=== PATIENT | male | born 2005 | race Caucasian/White ===

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

== ENCOUNTER 2024-03-12 17:12 | Observation (INO) ==
[2024-03-12 20:55] LABS: ABS Eosinophils 0.1 10^3/uL (0.0-0.5); ABS Lymphocytes 2.3 10^3/uL (1.0-4.8); ABS Monocytes 0.7 10^3/uL (0.0-1.1); ABS Neutrophils 13.5 10^3/uL (1.5-7.6); ABS Nucleated RBC 0.01 10^3/ul; Eosinophil % 0.4 %; Hematocrit 43.9 % (38-53); Hemoglobin 15.3 g/dL (13.2-16.3); Mean Corpuscular Hemoglobin 29.1 pg (27-33); Mean Corpuscular Hgb Conc 34.9 g/dL (31-36); Mean Corpuscular Volume 83.4 fL (80-97); Mean Platelet Volume 7.9 fL (7.5-11.2); Platelet Count 370 10^3/uL (150-450); Red Blood Count 5.26 10^6/uL (4.06-5.63); Red Cell Distribution Width 12.8 % (12-17); White Blood Count 16.6 10^3/uL (3.6-10.2)
[2024-03-12 21:19] LABS: Albumin 5.2 g/dL (3.2-5.2); Albumin/Globulin Ratio 1.9 (1-3); C Reactive Protein 6.41 mg/L (<8.01); Calcium 10.2 mg/dL (8.6-10.3); Creatinine, Serum 0.8 mg/dL (0.67-1.17); Globulin 2.7 g/dL (2-4); Potassium 3.9 mmol/L (3.5-5.0); Total Bilirubin 1.2 mg/dL (0.2-1.0); Total Protein 7.9 g/dL (6.4-8.9); eGFR CKD-EPI 129.9 (>60)
[2024-03-12 21:20] LABS: Urine Appearance Clear; Urine Bilirubin Negative (Negative); Urine Blood Negative (Negative); Urine Color Yellow; Urine Glucose Negative (Negative); Urine Ketones Negative (Negative); Urine Nitrite Negative (Negative); Urine Protein Negative (Negative); Urine Urobilinogen Negative (Negative)
[2024-03-13] MEDS: Piperacillin/Tazobac 3.375 BAG 3.375 GM/100 ML BAG IV ONE (00:19)
[2024-03-13] MEDS: Lactated Ringers 1000 ml BAG 1,000 ML IV ONE (01:11)
[2024-03-13] MEDS: Ondansetron 4 mg VIAL 2 MG/ML 2 ml VIAL IV ONE (01:57)
[2024-03-13] MEDS: NS 0.9% 1000 ml BAG 1,000 ML IV SCH (02:19)
[2024-03-13] MEDS: Acetaminophen IV 1 GM/100ML 1,000 MG/100 ML BAG IV PRN (02:45)
[2024-03-13] MEDS: Piperacillin/Tazobac 3.375 BAG 3.375 GM/100 ML BAG IV SCH (05:20)
[2024-03-13 07:04] LABS: ABS Eosinophils 0.1 10^3/uL (0.0-0.5); ABS Lymphocytes 2.3 10^3/uL (1.0-4.8); ABS Monocytes 0.9 10^3/uL (0.0-1.1); ABS Neutrophils 7.3 10^3/uL (1.5-7.6); Eosinophil % 1.3 %; Hematocrit 36.7 % (38-53); Lymphocyte % 21.5 %; Mean Corpuscular Hemoglobin 29.2 pg (27-33); Mean Corpuscular Hgb Conc 35.3 g/dL (31-36); Mean Corpuscular Volume 82.8 fL (80-97); Mean Platelet Volume 7.8 fL (7.5-11.2); Platelet Count 275 10^3/uL (150-450); Red Blood Count 4.44 10^6/uL (4.06-5.63); Red Cell Distribution Width 12.7 % (12-17); White Blood Count 10.6 10^3/uL (3.6-10.2)
[2024-03-13 07:21] LABS: Calcium 8.8 mg/dL (8.6-10.3); Creatinine, Serum 0.77 mg/dL (0.67-1.17); Potassium 3.7 mmol/L (3.5-5.0); eGFR CKD-EPI 131.4 (>60)
[2024-03-13] MEDS ORDERED: Dexamethasone IV 4 MG/ML VIAL 1 ml VIAL ONE (15:56)
[2024-03-13] MEDS ORDERED: Propofol 10 MG/ML 20 ML BTL ONE (15:56)
[2024-03-13] MEDS ORDERED: Lidocaine 2% PF 5 ML VIAL ONE (15:56)
[2024-03-13] MEDS ORDERED: Ondansetron 4 mg VIAL 2 MG/ML 2 ml VIAL ONE ×2 (15:56→18:31)
[2024-03-13] MEDS ORDERED: fentaNYL 100 mcg/2 ml 50 MCG/ML VIAL ONE (15:57)
[2024-03-13] MEDS ORDERED: Rocuronium 50 mg VIAL 10 mg/ml 5 ml VIAL (50 mg) ONE ×2 (15:57→17:11)
[2024-03-13] MEDS ORDERED: Midazolam 2 mg/2 ml VIAL 1 mg/ml 2 ml VIAL (2 mg) ONE (15:57)
[2024-03-13] MEDS ORDERED: ceFAZolin VIAL VIAL ONE (16:53)
[2024-03-13] MEDS ORDERED: HYDROmorphone 0.5 MG/0.5 ML SYRINGE ONE (17:44)
[2024-03-13] MEDS ORDERED: Naloxone 0.4 mg VIAL 0.4 mg/ml 1 ml VIAL IV PRN (18:32)
[2024-03-13] MEDS ORDERED: fentaNYL 100 mcg/2 ml 50 MCG/ML VIAL IV PRN (18:32)
[2024-03-13] MEDS: Ondansetron 4 mg VIAL 2 MG/ML 2 ml VIAL IV PRN (18:35)
[2024-03-13] MEDS ORDERED: Acetaminophen IV 1 GM/100ML 1,000 MG/100 ML BAG IV ONE (18:47)
[2024-03-13 20:43] VITALS: BP 143/75
== END 2024-03-13 20:10 | disposition home or self-care (01) ==
LOC: ED 17:12 → EDHOLD 17:12 → AA 03-13 09:50
PROVIDERS: ADMIT Surgery; ATTEND Surgery